=== PATIENT | male | born 1990 | race Caucasian/White ===

== ENCOUNTER 2017-11-16 20:34 | Emergency (ER) | payer BC ==
--- NOTE | 2017-11-16 23:46 | EDM.PDOC ---
ED HPI GENERAL MEDICAL PROBLEM - General Chief Complaint: Gastrointestinal Problem Stated Complaint: BLOOD IN STOOLE Time Seen by Provider: 11/16/17 21:23 Source of Information: Reports: Patient, Family History Limitations: Reports: No Limitations - History of Present Illness INITIAL COMMENTS - FREE TEXT/NARRATIVE: The patient presents with rectal bleeding. The patient went to [facility] last Friday because he had sores on his legs and joint pain. He had these sores before on his legs and it ended up being cellulitis. He wanted to get on an antibiotic. He was seen and because of the lesions on his leg and the joint guo he was diagnosed with psoriatic arthritis and he was puton a medrol dose pack. He started having some bloody stools on Friday and it got worse where there is mostly blood in his stools. He has a history of ulcers. He does have some mild pain to his abdomen. He has no history of hemorrhoids. He has been urinating more. He has no nausea or vomiting. He has been thirsty. He says he had an elevated blood sugar once for physical but it ended up being nothing. He has no fever, chills, chest pain or shortness of breath. Onset: Gradual Duration: Day(s): Location: Reports: Abdomen Quality: Reports: Ache Severity: Mild Improves with: Reports: None Worsens with: Reports: None Associated Symptoms: Denies: Chest Pain, Cough, Fever/Chills, Headaches, Nausea/ Vomiting, Shortness of Breath Abdomen Pain Score (Numeric/FACES): 3 - Related Data Allergies Allergy/AdvReac Type Severity Reaction Status Date / Time No Known Allergies Allergy Verified 11/16/17 21:15 Home Meds: Home Meds Omeprazole 20 mg PO DAILY 11/16/17 [History] methylPREDNISolone [Medrol] 1 dose PO ASDIRECTED 11/16/17 [History] metFORMIN [Glucophage XR] 500 mg PO BIDMEALS #60 tab.er 11/17/17 [Rx] Past Medical History - Past Surgical History HEENT Surgical History: Reports: Other (See Below) Other HEENT Surgeries/Procedures: dental sx GI Surgical History: Reports: Hernia, Inguinal Musculoskeletal Surgical History: Reports: Arthroscopic Knee Social & Family History - Family History Family Medical History: Noncontributory - Tobacco Use Smoking Status *Q: Current Every Day Smoker Years of Tobacco use: 6 Packs/Tins Daily: 1 - Caffeine Use Caffeine Use: Reports: Coffee, Energy Drinks - Recreational Drug Use Recreational Drug Use: No ED ROS GENERAL - Review of Systems Review Of Systems: See Below Constitutional: Reports: No Symptoms HEENT: Reports: No Symptoms Respiratory: Reports: No Symptoms Cardiovascular: Reports: No Symptoms Endocrine: Reports: No Symptoms GI/Abdominal: Reports: Abdominal Pain, Bloody Stool. Denies: Diarrhea, Nausea, Vomiting : Reports: No Symptoms Musculoskeletal: Reports: Joint Pain Skin: Reports: No Symptoms Neurological: Reports: No Symptoms Psychiatric: Reports: No Symptoms ED EXAM, GI/ABD - Physical Exam Exam: See Below Exam Limited By: No Limitations General Appearance: Alert, No Apparent Distress Ears: Normal External Exam Nose: Normal Inspection Throat/Mouth: Normal Inspection Head: Atraumatic, Normocephalic Neck: Normal Inspection Respiratory/Chest: No Respiratory Distress, Lungs Clear, Normal Breath Sounds Cardiovascular: Regular Rate, Rhythm, No Edema, No Murmur GI/Abdominal Exam: Soft, Non-Tender, No Organomegaly, No Mass Rectal (Males) Exam: Other (No hemorrhoids noted) Extremities: Other (A few areas of erythema but no drainage.) Course - Vital Signs Last Recorded V/S: Last Vital Signs Temp 98.2 F 11/16/17 21:09 Pulse 93 11/16/17 21:09 Resp 18 11/16/17 21:09 BP 153/106 H 11/16/17 21:09 Pulse Ox 92 L 11/16/17 21:09 - Orders/Labs/Meds Orders: Active Orders 24 hr Category Date Time Status Cardiac Monitoring [RC] . DIRECTED Care 11/16/17 21:32 Active UA W/MICROSCOPIC [URIN] Stat Lab 11/16/17 21:39 Ordered Labs: Laboratory Tests 11/16/17 11/16/17 11/16/17 Range/Units 21:39 21:45 21:45 WBC 15.44 H (4.23-9.07) K/mm3 RBC 5.56 (4.63-6.08) M/mm3 Hgb 17.0 (13.7-17.5) gm/L Hct 47.9 (40.1-51.0) % MCV 86.2 (79.0-92.2) fl MCH 30.6 (25.7-32.2) pg MCHC 35.5 (32.2-35.5) g/dl RDW Std Deviation 38.2 (35.1-43.9) fL Plt Count 204 (163-337) K/mm3 MPV 11.3 (9.4-12.3) fl Neut % (Auto) 64.2 (34.0-67.9) % Lymph % (Auto) 26.9 (21.8-53.1) % Wayne % (Auto) 7.0 (5.3-12.2) % Eos % (Auto) 1.2 (0.8-7.0) Baso % (Auto) 0.1 (0.1-1.2) % Neut # (Auto) 9.90 H (1.78-5.38) K/mm3 Lymph # (Auto) 4.16 H (1.32-3.57) K/mm3 Wayne # (Auto) 1.08 H (0.30-0.82) K/mm3 Eos # (Auto) 0.18 (0.04-0.54) K/mm3 Baso # (Auto) 0.02 (0.01-0.08) K/mm3 Sodium 134 L (136-145) mEq/L Potassium 3.6 (3.5-5.1) mEq/L Chloride 97 L (98-107) mEq/L Carbon Dioxide 26 (21-32) mEq/L Anion Gap 14.6 (5-15) BUN 14 (7-18) mg/dL Creatinine 1.0 (0.7-1.3) mg/dL Est Cr Clr Drug Dosing 117.13 mL/min Estimated GFR (MDRD) > 60 (>60) mL/min BUN/Creatinine Ratio 14.0 (14-18) Glucose 354 H (74-106) mg/dL Hemoglobin A1c (4.50-6.20) % Calcium 9.0 (8.5-10.1) mg/dL Total Bilirubin 0.5 (0.2-1.0) mg/dL AST 26 (15-37) U/L ALT 143 H (16-63) U/L Alkaline Phosphatase 82 (46-116) U/L Total Protein 7.2 (6.4-8.2) g/dl Albumin 3.8 (3.4-5.0) g/dl Globulin 3.4 gm/dL Albumin/Globulin Ratio 1.1 (1-2) Lipase 177 (73-393) U/L Urine Color Yellow (Yellow) Urine Appearance Clear (Clear) Urine pH 6.5 (5.0-8.0) Ur Specific [place] 1.025 (1.005-1.030) Urine Protein Negative (Negative) Urine Glucose (UA) 2+ H (Negative) Urine Ketones Negative (Negative) Urine Occult Blood Negative (Negative) Urine Nitrite Negative (Negative) Urine Bilirubin Negative (Negative) Urine Urobilinogen 1.0 (0.2-1.0) Ur Leukocyte Esterase Negative (Negative) Urine RBC 0-5 (0-5) /hpf Urine WBC 0-5 (0-5) /hpf Ur Epithelial Cells 0-5 (0-5) /hpf Urine Bacteria Rare (FEW) /hpf Urine Mucus Not seen (FEW) /hpf 11/16/17 Range/Units 21:45 WBC (4.23-9.07) K/mm3 RBC (4.63-6.08) M/mm3 Hgb (13.7-17.5) gm/L Hct (40.1-51.0) % MCV (79.0-92.2) fl MCH (25.7-32.2) pg MCHC (32.2-35.5) g/dl RDW Std Deviation (35.1-43.9) fL Plt Count (163-337) K/mm3 MPV (9.4-12.3) fl Neut % (Auto) (34.0-67.9) % Lymph % (Auto) (21.8-53.1) % Wayne % (Auto) (5.3-12.2) % Eos % (Auto) (0.8-7.0) Baso % (Auto) (0.1-1.2) % Neut # (Auto) (1.78-5.38) K/mm3 Lymph # (Auto) (1.32-3.57) K/mm3 Wayne # (Auto) (0.30-0.82) K/mm3 Eos # (Auto) (0.04-0.54) K/mm3 Baso # (Auto) (0.01-0.08) K/mm3 Sodium (136-145) mEq/L Potassium (3.5-5.1) mEq/L Chloride (98-107) mEq/L Carbon Dioxide (21-32) mEq/L Anion Gap (5-15) BUN (7-18) mg/dL Creatinine (0.7-1.3) mg/dL Est Cr Clr Drug Dosing mL/min Estimated GFR (MDRD) (>60) mL/min BUN/Creatinine Ratio (14-18) Glucose (74-106) mg/dL Hemoglobin A1c 8.60 H (4.50-6.20) % Calcium (8.5-10.1) mg/dL Total Bilirubin (0.2-1.0) mg/dL AST (15-37) U/L ALT (16-63) U/L Alkaline Phosphatase (46-116) U/L Total Protein (6.4-8.2) g/dl Albumin (3.4-5.0) g/dl Globulin gm/dL Albumin/Globulin Ratio (1-2) Lipase (73-393) U/L Urine Color (Yellow) Urine Appearance (Clear) Urine pH (5.0-8.0) Ur Specific [place] (1.005-1.030) Urine Protein (Negative) Urine Glucose (UA) (Negative) Urine Ketones (Negative) Urine Occult Blood (Negative) Urine Nitrite (Negative) Urine Bilirubin (Negative) Urine Urobilinogen (0.2-1.0) Ur Leukocyte Esterase (Negative) Urine RBC (0-5) /hpf Urine WBC (0-5) /hpf Ur Epithelial Cells (0-5) /hpf Urine Bacteria (FEW) /hpf Urine Mucus (FEW) /hpf - Re-Assessments/Exams Free Text/Narrative Re-Assessment/Exam: 11/16/17 23:48 I ordered some labs. 11/16/17 23:57 WBC was elevated at 15.44. His Na was a little low at 134. His glucose was elevated at 354. His hemaglobin A1C was elevated at 8.6. His ALT was elevated at 143. His UA had 2+ glucose. The steroids may be causing his elevated WBC and blood glucose. His A1C would not be that high with the past elevated sugars from the steroids. I feel he has type II diabetes. I will need him to stop the steroids and I will have him take his prilosec and I will start him on some metformin. Departure - Departure Time of Disposition: 00:15 Disposition: Home, Self-Care 01 Condition: Good Clinical Impression: Type II diabetes mellitus Qualifiers: Diabetes mellitus prison insulin use: without biogeographer use Diabetes mellitus complication status: without complication Qualified Code(s): E11.9 - Type 2 diabetes mellitus without complications GI bleed Qualifiers: GI bleed type/associated pathology: unspecified gastrointestinal hemorrhage type Qualified Code(s): K92.2 - Gastrointestinal hemorrhage, unspecified Steroid side effects Qualifiers: Encounter type: initial encounter Qualified Code(s): T38.0X5A - Adverse effect of glucocorticoids and synthetic analogues, initial encounter Arthralgia Qualifiers: Joint pain location: unspecified Qualified Code(s): M25.50 - Pain in unspecified joint - Discharge Information Prescriptions: metFORMIN [Glucophage XR] 500 mg PO BIDMEALS #60 tab.er Referrals: PCP,None [Primary Care Provider] - Rowan Killian [employer] SERVICES SPECIALIST [ED Midlevel Provider] - 1 Week Forms: ED Department Discharge Additional Instructions: Drink plenty of fluids. Keep taking your prilosec. Start taking the metformin 2 times per day with meals. It may give your diarrhea so wait a day or 2 to start taking it. Eat a well balanced diet eat more protein and vegetables. Try to limit your carbs such as potatoes, rice, breads and cereals. Please return if you are worse. - My Orders Last 24 Hours: My Active Orders 11/16/17 21:32 Cardiac Monitoring [RC] . DIRECTED 11/16/17 21:39 UA W/MICROSCOPIC [URIN] Stat - Assessment/Plan Last 24 Hours: My Active Orders 11/16/17 21:32 Cardiac Monitoring [RC] . DIRECTED 11/16/17 21:39 UA W/MICROSCOPIC [URIN] Stat
== END 2017-11-17 00:29 | disposition home or self-care (01) ==
LOC: JD.ED 20:34
DX: K92.2 Gastrointestinal hemorrhage, unspecified (principal); E11.9 Type 2 diabetes mellitus without complications; T38.0X5A Adverse effect of glucocorticoids and synthetic analogues, initial encounter; Z79.899 Other long term (current) drug therapy; F17.210 Nicotine dependence, cigarettes, uncomplicated; M25.50 Pain in unspecified joint
CPT/HCPCS: 36415; 80053; 81001; 83036; 83690; 85025; 99283; 99285